=== PATIENT | female | born 1995 | race Caucasian/White ===

== ENCOUNTER → 2017-01-23 | Outpatient (CLI) | payer BC | LOC: FIMAGING 08:14 | PROVIDERS: ATTEND Midwife | DX: Z34.02 Encounter for supervision of normal first pregnancy, second trimester (principal); Z3A.22 22 weeks gestation of pregnancy ==

== ENCOUNTER 2017-05-25 06:48 | Observation (INO) | payer BC ==
[2017-05-25 09:21] LABS: % IMMATURE GRANULYOCYTES 0.8 % (0.0-1.1); ADD DIFF? NO; ADD MORPH? NO; ADD SCAN? NO; ATYPICAL LYMPHOCYTE FLAG 0 (0-99); FRAGMENT RBC FLAG 0 (0-99); HEMATOCRIT 40.8 % (38.0-47.0); HEMOGLOBIN 13.9 g/dL (12.6-16.3); LEFT SHIFT FLG 10 (0-99); LIPEMIA HEMOLYSIS FLAG 90 (0-99); MEAN CELL HEMOGLOBIN CONCENTR. 34.1 g/dL (32.4-36.7); MEAN CELL VOLUME 93.8 fL (81.5-99.8); MEAN PLATELET VOLUME 11.3 fL (8.7-11.7); PLATELET CLUMPS FLAG 0 (0-99); PLATELET COUNT 165 10^3/uL (150-400); RED BLOOD CELL COUNT 4.35 10^6/uL (4.18-5.33); RED CELL DISTRIBUTION WIDTH 12.2 % (11.5-15.2)
[2017-05-25 09:28] LABS: ALANINE AMINOTRANSFERASE 29 IU/L (9-52); ASPARTATE AMINOTRANSFERASE 20 IU/L (14-46); BILIRUBIN,TOTAL 0.4 mg/dL (0.1-1.4); BILIRUBIN-CONJUGATED 0.3 mg/dL (0.0-0.5); BILIRUBIN-UNCONJUGATED 0.1 mg/dL (0.0-1.1); CREATININE 0.6 mg/dL (0.6-1.0); GLOMERULAR FILTRATION RATE > 60; LACTATE DEHYDROGENASE 431 IU/L (313-618); URIC ACID 5.6 mg/dL (2.5-6.8)
--- NOTE | 2017-05-25 10:47 | SOAPPROG ---
[facility] Progress Note Assessment/Plan: Assessment: 21 yo @ 36 5/7, admitted for observation for vaginal bleeding, stable Plan: 05/25/17 10:44 FWB reassuring. Discussed vaginal bleeding likely due to cervical change, labor precautions given, will discharge home and follow up with primary ob provier. Subjective: 21 yo @ 36 5/7, admitted for observation for vaginal bleeding, stable- bleeding has stopped, no recent intercourse or strenuous exercise. Objective: Laboratory Results 05/25/17 09:00 05/25/17 09:00 VSS NST 130s, mod variability, +accels, no decels SVE 3/80/-1 [place]-irregular contractions
== END 2017-05-25 11:12 | disposition home or self-care (01) ==
LOC: FLD 06:48
PROVIDERS: ADMIT Midwife; ATTEND Obstetrics & Gynecology
DX: O46.93 Antepartum hemorrhage, unspecified, third trimester (principal); Z3A.36 36 weeks gestation of pregnancy

== ENCOUNTER 2017-05-26 | Inpatient (IN) | payer BC ==
[2017-05-26] MEDS ORDERED: OLIVE OIL 118 ML BTL MISC PRN (00:27)
[2017-05-26] MEDS ORDERED: EPSOM SALT 454 GM TP PRN (00:27)
[2017-05-26] MEDS ORDERED: OXYTOCIN/RINGERS LACTATE 1,000 ML IV PRN (00:27)
[2017-05-26] MEDS ORDERED: TERBUTALINE SULFATE 1 MG/ML VIAL IV PRN (00:27)
[2017-05-26] MEDS: LR 1,000 ML IV PRN ×3 (00:48→05:27)
[2017-05-26] MEDS ORDERED: OLIVE OIL 118 ML BTL ONE (00:49)
[2017-05-26] MEDS ORDERED: LIDOCAINE 1% 300 MG/30 ML SDV ONE (00:49)
[2017-05-26] MEDS ORDERED: OXYTOCIN 10 UNIT/ML VIAL ONE (00:50)
[2017-05-26] MEDS ORDERED: TERBUTALINE SULFATE 1 MG/ML VIAL ONE (00:50)
[2017-05-26] MEDS ORDERED: AMMONIA AROMATIC 1 EACH AMP IH ONE (00:50)
[2017-05-26] MEDS ORDERED: MISOPROSTOL 200 MCG TAB ONE (00:50)
[2017-05-26 01:00] LABS: % IMMATURE GRANULYOCYTES 0.6 % (0.0-1.1); ABSOLUTE IMMATURE GRANULOCYTES 0.09 10^3/uL (0.00-0.10); ADD DIFF? NO; ADD MORPH? NO; ADD SCAN? NO; ATYPICAL LYMPHOCYTE FLAG 0 (0-99); FRAGMENT RBC FLAG 0 (0-99); HEMATOCRIT 38.9 % (38.0-47.0); LEFT SHIFT FLG 10 (0-99); LIPEMIA HEMOLYSIS FLAG 90 (0-99); MEAN CELL HEMOGLOBIN 32.5 pg (27.9-34.1); MEAN CELL VOLUME 90.3 fL (81.5-99.8); MEAN PLATELET VOLUME 11.4 fL (8.7-11.7); PLATELET CLUMPS FLAG 10 (0-99); PLATELET COUNT 169 10^3/uL (150-400); RED BLOOD CELL COUNT 4.31 10^6/uL (4.18-5.33)
[2017-05-26] MEDS ORDERED: fentaNYL 2MCG/ML/BUP 0.1% RTU 100 ML BAG EP ONE (01:37)
[2017-05-26] MEDS ORDERED: LIDO/EPI 2% **for epidural** 20 ML SDV ONE (01:37)
[2017-05-26] MEDS ORDERED: ONDANSETRON 4 MG/2 ML VIAL IVP PRN (02:33)
[2017-05-26] MEDS ORDERED: PHENYLEPHRINE HCL 100 MCG/ML SYR IVP PRN (02:33)
[2017-05-26] MEDS ORDERED: NALOXONE HCL 0.4 MG/ML INJ IVP PRN (02:33)
[2017-05-26] MEDS ORDERED: LR 500 ML IV SCH (03:00)
[2017-05-26] MEDS ORDERED: fentaNYL 2MCG/ML/BUP 0.1% RTU 100 ML EP SCH (03:00)
[2017-05-26] MEDS ORDERED: fentaNYL 100 MCG/2 ML INJ ONE (08:16)
[2017-05-26] MEDS ORDERED: fentaNYL 100 MCG/2 ML INJ IVP ONE (08:18)
--- NOTE | 2017-05-26 08:23 | OBPROG ---
OBG Labor Progress Note Assessment/Plan: Assessment: 21 y.o. at 37 5/7 weeks in active labor and SROM @ 2230. VSS- afebrile. Occasional elevated BPs with normal PIH labs. NST- reactive CAT I SVE- 9/100/+1 Plan: Allow patient to labor down with CHAO in place. Continuous EFM and VS per protocol. Anticipate . 05/26/17 08:19 Subjective: Reports increased pain and pressure with uterine contractions. Discussed options and either redose CHAO or administer Fentanyl IVP to allow patient to rest and labor down. Partner and mother present at bedside and supportive. Objective: 05/26/17 00:45 Patient ABO/Rh O POSITIVE 05/26/17 00:45 - SVE Dilation (cm): 9 Effacement (%): 100 Station: +1 - Physical Exam General Appearance: WD/WN, alert, moderate distress Estimated Weight: [id number] EENT: normal ENT inspection Neck: non-tender, full range of motion, normal inspection Respiratory: lungs clear, normal breath sounds Cardiac/Chest: regular rate, rhythm Abdomen: normal bowel sounds, non-tender, soft Extremities: non-tender, normal inspection Back: Normal inspection Skin: normal color, warm/dry Neuro/Psych: alert, normal mood/affect, oriented x 3 Oxytocin Orders Assessment - Pre-Induction/Augmentation Assessment Gestational Age: 37 week(s) and 5 day(s) ICD10 Worksheet Patient Problems: Problems Problem Status Onset Active labor at term Acute Vaginal bleeding during , antepartum Acute - ICD10 Problem Qualifiers (1) Active labor at term
[2017-05-26] MEDS ORDERED: SIMETHICONE 80 MG TAB CHEW PO PRN (10:41)
[2017-05-26] MEDS ORDERED: HYDROCORTISONE 0.5% CREAM TP PRN (10:41)
--- NOTE | 2017-05-26 10:41 | OBDEL ---
Info Type: Vaginal GBS+: No Indications for Delivery: Spontaneous Labor, SROM Vaginal Delivery - Labor and Delivery Onset of Contractions Date: 05/25/17 Onset of Contractions Time: 06:00 Onset of Contractions Type: Spontaneous Rupture of Membranes Date: 05/25/17 Rupture of Membranes Time: 22:43 Rupture of Membranes Type: Spontaneous Amniotic Fluid Color: Clear Dilation Complete Date: 05/26/17 Dilation Complete Time: 09:35 Placenta Delivery Date: 05/26/17 Placenta Delivery Time: 10:22 Total Hours of Labor: 28 Laceration: 1st Degree Repair: 3-0, Vicryl (bilateral labial lacerations) Vaginal Sponge Count Correct: Yes (10) Vaginal Needle Count Correct: Yes Vaginal Sweep Performed: Yes EBL: 350 Delivery Events: None [place] Data Ernandez Delivery Date: 05/26/17 Delivery Time: 10:11 CORY: 06/11/17 Gestational Age: 37 week(s) and 5 day(s) Sex of Infant: Male Score (1 Min): 8 Score (5 Min): 9 ICD10 Worksheet Patient Problems: Problems Problem Status Onset Active labor at term Acute Vaginal bleeding during , antepartum Acute - ICD10 Problem Qualifiers (1) Active labor at term
[2017-05-26] MEDS: IBUPROFEN 600 MG TAB PO PRN ×3 (11:06→23:18)
[2017-05-27] MEDS: IBUPROFEN 600 MG TAB PO PRN ×3 (05:31→17:52)
--- NOTE | 2017-05-27 08:08 | OBPP ---
Progress Note Assessment/Plan: Assessment: 21 y.o. s/p at 37 5/7 weeks. Recovering well. VSS- afebrile. Plan: Routine orders and care. 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 05/26/17 08:19 05/27/17 08:05 Subjective: Reports feeling well with good pain control and light vaginal bleeding. infant. Eating and drinking well without nausea or vomiting. Ambulating without vertigo. Appropriate mood with good support system. Objective: 05/26/17 00:45 Patient ABO/Rh O POSITIVE 05/26/17 00:45 Temp Pulse Resp BP Pulse Ox 37.3 C 87 18 118/74 94 05/26/17 20:00 05/26/17 20:00 05/26/17 20:00 05/26/17 20:00 05/26/17 20:00 Uterine Position/Fundal Height: Umbilicus -1 Uterine Tone: Firm Physical Exam - Physical Exam General Appearance: WD/WN, alert, no apparent distress EENT: normal ENT inspection Neck: non-tender, full range of motion, normal inspection Respiratory: lungs clear, normal breath sounds Cardiac/Chest: regular rate, rhythm Abdomen: non-tender, soft Extremities: normal range of motion, non-tender, normal inspection Back: Normal inspection Skin: normal color, warm/dry Neuro/Psych: alert, normal mood/affect, oriented x 3
[2017-05-27] MEDS: DOCUSATE SODIUM 100 MG CAP PO PRN ×2 (11:45→21:34)
[2017-05-27] MEDS: HYDROCODONE/APAP 5/325 TAB PO PRN (21:33)
[2017-05-27 21:39] VITALS: PULSE 82
[2017-05-28] MEDS: IBUPROFEN 600 MG TAB PO PRN ×2 (00:02→06:19)
[2017-05-28] MEDS: HYDROCODONE/APAP 5/325 TAB PO PRN (06:18)
--- NOTE | 2017-05-28 07:47 | OBGCSDC ---
General Delivery Information - General Info : 1 Para: 1 Delivery Physician/CNM: Batsheva Baum Admission Date: 05/25/17 Labs: Patient ABO/Rh O POSITIVE 05/26/17 00:45 Hct 38.9 % (38.0-47.0) 05/26/17 00:45 Vaginal - Diagnosis Labor: Spontaneous Presentation at Delivery: Vertex Rupture of Membranes Type: Spontaneous Amniotic Fluid Color: Clear Laceration: 1st Degree Repair: 3-0, Vicryl (bilateral labial lacerations) Delivery Events: None - Operations/Procedures L&D Analgesia/Anesthesia Type: Epidural - Delivery L&D Analgesia/Anesthesia Type: Epidural Data Ernandez Delivery Date: 05/26/17 Delivery Time: 10:11 CORY: 06/11/17 Gestational Age: 38 week(s) and 0 day(s) Sex of Infant: Male Weight (gm): 3150 kg Score (1 Min): 8 Score (5 Min): 9 Discharge Information - Discharge Information Discharge Medications: Ibuprofen, Oxycodone, Vitamins Condition: Good Instruction/Follow Up: Four Weeks, Six Weeks Discharge Physician/CNM: Batsheva Baum
[2017-05-28 09:09] VITALS: BP 113/77; RESP 15; TEMP 98.4; O2SAT 97
== END 2017-05-28 10:45 | disposition home or self-care (01) | DRG 775 ==
LOC: FLD → FOB 13:22
PROVIDERS: ADMIT Obstetrics & Gynecology; ATTEND Obstetrics & Gynecology
PROC: 10E0XZZ Delivery of Products of Conception, External Approach (ICD-10-PCS; principal; 2017-05-26)
PROC: 0HQ9XZZ Repair Perineum Skin, External Approach (ICD-10-PCS; principal; 2017-05-26)
DX: O70.0 First degree perineal laceration during delivery (principal); Z3A.38 38 weeks gestation of pregnancy; Z37.0 Single live birth
CPT/HCPCS: J2370; J2590; J3010; J3105